=== PATIENT | male | born 1975 | race Caucasian/White ===

== ENCOUNTER 2021-10-21 18:56 | Inpatient (IN) | payer OTHER ==
[2021-10-21 19:16] VITALS: BMI 47.5
[2021-10-21] MEDS ORDERED: ACETAMINOPHEN 1000 MG/100 ML BAG IVPB ONE (19:36)
[2021-10-21] MEDS ORDERED: chlordiazePOXIDE HCL 25 MG CAPSULE PO ONE (19:36)
[2021-10-21] MEDS ORDERED: ONDANSETRON 4 MG/2 ML VIAL IVPUSH ONE (19:36)
[2021-10-21] MEDS ORDERED: LACTATED RINGERS SOLUTION 1000 ML INFUS.BAG IV ONE (19:38)
[2021-10-21] MEDS ORDERED: FOLIC ACID INJECTION - 1 MG, THIAMINE HCL 100 MG, MULTIVIT INJECTION ADULT 10 ML in SOD... IVPB ONE (19:38)
[2021-10-21] MEDS ORDERED: chlordiazePOXIDE HCL 25 MG CAPSULE ONE (20:10)
[2021-10-21] MEDS ORDERED: ONDANSETRON 4 MG/2 ML VIAL ONE (20:10)
[2021-10-21 20:22] LABS: CALCIUM 8.5 mg/dL (8.5-10.1)
[2021-10-21 20:23] LABS: ALBUMIN 3.5 g/dl (3.4-5.0); BLOOD UREA NITROGEN 34.8 mg/dL (7-18); MAGNESIUM 1.9 mg/dL (1.8-2.4)
[2021-10-21 20:26] LABS: CREATININE 5.2 mg/dL (0.55-1.3)
[2021-10-21 20:27] LABS: TOT PROT 7.5 g/dl (6.4-8.2)
[2021-10-21 20:28] LABS: BILIRUBIN,TOTAL 1.2 mg/dL (0.2-1)
[2021-10-21 20:37] LABS: BASO % 0.4 % (0-2.0); HEMATOCRIT 47.3 % (35.4-49); LYMPH % 5.7 % (8-40); MCH 31.1 pg (25.7-33.7); MCHC 33.9 g/dl (32.0-35.9); MEAN CELL VOLUME 91.9 fl (80-96); MONO % 6.4 % (3.8-10.2); NEUT % 87.5 % (42.8-82.8); PLATELET COUNT 330 10^3/uL (134-434); RBC 5.15 M/mm3 (4.00-5.60); RDW 16.2 % (11.9-15.9); WHITE BLOOD COUNT 19.8 K/mm3 (4.0-10.0)
[2021-10-21 22:31] LABS: CHLORIDE 103 mmol/L (98-107); SODIUM 138 mmol/L (136-145)
[2021-10-21 22:33] LABS: BLOOD UREA NITROGEN 35.1 mg/dL (7-18); CALCIUM 8.2 mg/dL (8.5-10.1)
[2021-10-21 22:34] LABS: ALBUMIN 3.4 g/dl (3.4-5.0); ANION GAP 13 MMOL/L (8-16); CO2 23 mmol/L (21-32); GLUCOSE,RANDOM 150 mg/dL (74-106)
[2021-10-21 22:36] LABS: SGPT/ALT 159 U/L (13-61)
[2021-10-21 22:37] LABS: CREATININE 5.1 mg/dL (0.55-1.3); SGOT/AST 583 U/L (15-37)
[2021-10-21 22:38] LABS: BILIRUBIN,TOTAL 0.9 mg/dL (0.2-1); TOT PROT 6.9 g/dl (6.4-8.2)
[2021-10-21 22:39] LABS: LACTIC ACID 3.3 mmol/L (0.4-2.0)
[2021-10-21 22:40] LABS: ALK PHOS 61 U/L (45-117)
[2021-10-22] MEDS ORDERED: CEFEPIME HCL/D5W 1 GM/50 ML BAG IVPB ONE (00:33)
[2021-10-22] MEDS ORDERED: VANCOMYCIN 1 GM in D5W (PRE-DOCKED) 1,000 MG/250 ML IVPB ONE (00:34)
[2021-10-22] MEDS ORDERED: CEFEPIME 1 GM/100 ML BAG IVPB ONE ×2 (00:47→10:01)
[2021-10-22] MEDS ORDERED: LABETALOL HCL 5 MG/1 ML (100MG/20 ML VIAL) IVPUSH ONE (01:08)
[2021-10-22] MEDS ORDERED: VANCOMYCIN/WATER FOR INJ (PEG) 1,000 MG/200 ML BAG IVPB ONE (01:26)
[2021-10-22 02:03] LABS: LACTIC ACID 2.5 mmol/L (0.4-2.0)
[2021-10-22] MEDS ORDERED: LACTATED RINGERS SOLUTION 1000 ML INFUS.BAG IV ONE (03:08)
[2021-10-22] MEDS ORDERED: LORazepam 1 MG TABLET PO PRN (04:46)
[2021-10-22] MEDS ORDERED: SODIUM CHLORIDE 0.9% 500 ML INFUS.BAG IV ONE (05:04)
[2021-10-22] MEDS ORDERED: LORazepam 1 MG TABLET ONE ×4 (05:24→21:32)
[2021-10-22] MEDS: LORazepam 1 MG TABLET PO SCH ×4 (05:26→21:55)
[2021-10-22] MEDS ORDERED: HEPARIN NA (PORCINE) 5,000 UNITS/ML 1ML VIAL ONE ×3 (06:34→21:32)
[2021-10-22] MEDS: HEPARIN NA (PORCINE) 5,000 UNITS/ML 1ML VIAL SQ SCH ×3 (06:37→21:55)
[2021-10-22] MEDS: SODIUM CHLORIDE 1,000 ML IV SCH (06:37)
[2021-10-22] MEDS ORDERED: FOLIC ACID 5 MG/1 ML IVPB ONE (07:00)
[2021-10-22 07:26] LABS: BASO % 0.3 % (0-2.0); HEMATOCRIT 44.2 % (35.4-49); HEMOGLOBIN 14.8 GM/dL (11.7-16.9); LYMPH % 6.1 % (8-40); MCH 31.4 pg (25.7-33.7); MCHC 33.6 g/dl (32.0-35.9); MEAN CELL VOLUME 93.4 fl (80-96); MEAN PLT VOLUME 10.2 fl (7.5-11.1); MONO % 5.5 % (3.8-10.2); NEUT % 88.1 % (42.8-82.8); PLATELET COUNT 289 10^3/uL (134-434); RBC 4.73 M/mm3 (4.00-5.60); RDW 16.2 % (11.9-15.9); WHITE BLOOD COUNT 18.7 K/mm3 (4.0-10.0)
[2021-10-22 07:32] LABS: INR 1.24 (0.83-1.09); PROTHROMBIN TIME (PATIENT) 14.3 SEC (9.7-13.0)
[2021-10-22 07:35] LABS: ACTIVATED PTT 29.9 SECONDS (25.2-36.5)
[2021-10-22] MEDS: INSULIN SLIDING SCALE (NOVOLOG) 1 VIAL SQ SCH ×3 (07:37→15:51)
[2021-10-22 07:44] LABS: CHLORIDE 105 mmol/L (98-107); SODIUM 139 mmol/L (136-145)
[2021-10-22 07:46] LABS: CALCIUM 7.6 mg/dL (8.5-10.1)
[2021-10-22 07:47] LABS: ALBUMIN 3.2 g/dl (3.4-5.0); ANION GAP 12 MMOL/L (8-16); BLOOD UREA NITROGEN 39.3 mg/dL (7-18); CO2 23 mmol/L (21-32); GLUCOSE,RANDOM 134 mg/dL (74-106); MAGNESIUM 2.1 mg/dL (1.8-2.4)
[2021-10-22 07:49] LABS: SGPT/ALT 138 U/L (13-61)
[2021-10-22 07:50] LABS: CREATININE 5.9 mg/dL (0.55-1.3); SGOT/AST 389 U/L (15-37)
[2021-10-22 07:51] LABS: TOT PROT 6.5 g/dl (6.4-8.2)
[2021-10-22 07:53] LABS: ALK PHOS 58 U/L (45-117)
[2021-10-22] MEDS ORDERED: VANCOMYCIN/WATER 2 GM/400 ML PREMIX BAG IVPB SCH (10:00)
[2021-10-22] MEDS ORDERED: THIAMINE HCL 200 MG/2 ML VIAL ONE (10:01)
[2021-10-22] MEDS: THIAMINE HCL 200 MG/2 ML VIAL IVPB SCH (10:15)
[2021-10-22] MEDS: CEFEPIME 1 GM in DEXTROSE 5%-WATER 100 ML IVPB SCH (11:00)
[2021-10-22] MEDS ORDERED: CEFEPIME 1 GM in DEXTROSE 5%-WATER 100 ML IVPB SCH (12:00)
[2021-10-22 15:19] LABS: EPI CELLS 3 /uL (0-25.1); HYALINE CASTS 1 /uL (0-3.1); PH,URINE 7.5 (5.0-8.0); URINE APPEARANCE TURBID; URINE BACTERIA 53 /uL (0-1359); URINE BILIRUBIN NEGATIVE (NEGATIVE); URINE COLOR ORANGE; URINE GLUCOSE (UA) TRACE (NEGATIVE); URINE KETONE NEGATIVE (NEGATIVE); URINE LEUK ESTERASE 2+ (NEGATIVE); URINE NITRITE NEGATIVE (NEGATIVE); URINE PROTEIN 4+ (NEGATIVE); URINE RBC 7507 /uL (0-23.9); URINE UROBILINOGEN 0.2 mg/dL (0.2-1.0); URINE WBC 4041 /uL (0-25.8)
[2021-10-22 15:41] LABS: COCAINE, UR NEGATIVE (NEGATIVE); METHADONE, UR NEGATIVE (NEGATIVE); OPIATES, URI NEGATIVE (NEGATIVE); PHENCYCLIDINE,URINE NEGATIVE (NEGATIVE); URINE AMPHETAMINES NEGATIVE (NEGATIVE); URINE BARBITURATES NEGATIVE (NEGATIVE); URINE BENZODIAZEPINES NEGATIVE (NEGATIVE)
[2021-10-22] MEDS ORDERED: amLODIPine BESYLATE 5 MG TABLET (FP) ONE (16:28)
[2021-10-22] MEDS: amLODIPine BESYLATE 5 MG TABLET (FP) PO SCH (16:37)
[2021-10-23] MEDS ORDERED: VANCOMYCIN/WATER 2 GRAMS 2,000 MG/400 ML PIGGYBACK IVPB SCH ×2
[2021-10-23] MEDS: CEFEPIME 1 GM in DEXTROSE 5%-WATER 100 ML IVPB SCH (00:13)
[2021-10-23] MEDS: SODIUM CHLORIDE 1,000 ML IV SCH ×2 (00:14→06:15)
[2021-10-23] MEDS ORDERED: METOPROLOL TARTRATE 5 MG/5 ML VIAL IVPUSH ONE (00:35)
[2021-10-23] MEDS: ONDANSETRON 4 MG/2 ML VIAL IVPUSH PRN ×2 (00:53→17:26)
[2021-10-23] MEDS ORDERED: SIMETHICONE 80 MG TAB.CHEW (FP) PO ONE (01:24)
[2021-10-23] MEDS: HEPARIN NA (PORCINE) 5,000 UNITS/ML 1ML VIAL SQ SCH ×3 (06:14→22:03)
[2021-10-23] MEDS: LORazepam 1 MG TABLET PO SCH ×4 (06:15→22:03)
[2021-10-23] MEDS: INSULIN SLIDING SCALE (NOVOLOG) 1 VIAL SQ SCH ×3 (06:15→16:55)
[2021-10-23] MEDS: amLODIPine BESYLATE 5 MG TABLET (FP) PO SCH (09:56)
[2021-10-23] MEDS: THIAMINE HCL 200 MG/2 ML VIAL IVPB SCH (09:57)
[2021-10-23] MEDS ORDERED: SODIUM CHLORIDE 0.45% 1,000 ML IV SCH ×2 (10:15)
[2021-10-23] MEDS: CEFTRIAXONE 1 GM in DEXTROSE 5%-WATER - 50 ML IVPB SCH (10:52)
[2021-10-23] MEDS: CARVEDILOL 6.25 MG TABLET (FP) PO SCH ×2 (13:24→22:03)
[2021-10-23] MEDS ORDERED: SODIUM CHLORIDE 0.45% 1,000 ML with SODIUM BICARBONATE 8.4% - 100 MEQ IV SCH (15:16)
[2021-10-23] MEDS: SODIUM BICARBONATE 8.4% - 75 MEQ in SODIUM CHLORIDE 0.45% 1,000 ML IV SCH (17:19)
[2021-10-23 17:49] LABS: CALCIUM 7.9 mg/dL (8.5-10.1)
[2021-10-23] MEDS: SIMETHICONE 80 MG TAB.CHEW (FP) PO PRN ×2 (17:49→22:03)
[2021-10-23 17:51] LABS: BLOOD UREA NITROGEN 27.4 mg/dL (7-18)
[2021-10-23 17:56] LABS: BILIRUBIN,TOTAL 0.6 mg/dL (0.2-1); TOT PROT 5.8 g/dl (6.4-8.2)
[2021-10-23 18:04] LABS: ALBUMIN 2.5 g/dl (3.4-5.0)
[2021-10-23] MEDS: GABAPENTIN 100 MG CAPSULE PO SCH (22:05)
[2021-10-24] MEDS ORDERED: LORazepam 0.5 MG TABLET PO PRN
[2021-10-24] MEDS ORDERED: MELATONIN 5 MG TABLETS PO ONE ×2 (02:32→22:22)
[2021-10-24] MEDS: SODIUM BICARBONATE 8.4% - 75 MEQ in SODIUM CHLORIDE 0.45% 1,000 ML IV SCH (02:33)
[2021-10-24] MEDS: SIMETHICONE 80 MG TAB.CHEW (FP) PO PRN (02:34)
[2021-10-24] MEDS: LORazepam 0.5 MG TABLET PO SCH ×4 (06:04→22:01)
[2021-10-24] MEDS: HEPARIN NA (PORCINE) 5,000 UNITS/ML 1ML VIAL SQ SCH ×3 (06:04→22:00)
[2021-10-24] MEDS: INSULIN SLIDING SCALE (NOVOLOG) 1 VIAL SQ SCH ×3 (06:04→17:09)
[2021-10-24 07:36] LABS: BASO % 0.6 % (0-2.0); EOS % 0.1 % (0-4.5); HEMATOCRIT 43.3 % (35.4-49); HEMOGLOBIN 14.2 GM/dL (11.7-16.9); LYMPH % 9.8 % (8-40); MCH 30.6 pg (25.7-33.7); MCHC 32.8 g/dl (32.0-35.9); MEAN CELL VOLUME 93.2 fl (80-96); MEAN PLT VOLUME 10.2 fl (7.5-11.1); MONO % 6.7 % (3.8-10.2); NEUT % 82.8 % (42.8-82.8); PLATELET COUNT 302 10^3/uL (134-434); RBC 4.65 M/mm3 (4.00-5.60); RDW 15.5 % (11.9-15.9); WHITE BLOOD COUNT 17.5 K/mm3 (4.0-10.0)
[2021-10-24 08:00] LABS: BLOOD UREA NITROGEN 39.4 mg/dL (7-18); CALCIUM 8.1 mg/dL (8.5-10.1)
[2021-10-24 08:02] LABS: ALBUMIN 2.5 g/dl (3.4-5.0)
[2021-10-24 08:05] LABS: BILIRUBIN,TOTAL 0.6 mg/dL (0.2-1); CREATININE 1.6 mg/dL (0.55-1.3)
[2021-10-24 08:06] LABS: TOT PROT 5.8 g/dl (6.4-8.2)
[2021-10-24] MEDS ORDERED: SODIUM CHLORIDE 1,000 ML IV SCH (10:30)
[2021-10-24] MEDS: amLODIPine BESYLATE 5 MG TABLET (FP) PO SCH (10:54)
[2021-10-24] MEDS: CEFTRIAXONE 1 GM in DEXTROSE 5%-WATER - 50 ML IVPB SCH (10:54)
[2021-10-24] MEDS: CARVEDILOL 6.25 MG TABLET (FP) PO SCH ×2 (10:55→22:01)
[2021-10-24] MEDS: GABAPENTIN 100 MG CAPSULE PO SCH ×2 (10:55→22:00)
[2021-10-24] MEDS: THIAMINE HCL 200 MG/2 ML VIAL IVPB SCH (10:56)
[2021-10-24] MEDS: SODIUM CHLORIDE 0.45% 1,000 ML IV SCH (19:47)
[2021-10-25] MEDS ORDERED: LORazepam 0.5 MG TABLET PO ONE (05:00)
[2021-10-25] MEDS: SODIUM CHLORIDE 0.45% 1,000 ML IV SCH ×3 (05:30→19:26)
[2021-10-25] MEDS: HEPARIN NA (PORCINE) 5,000 UNITS/ML 1ML VIAL SQ SCH ×3 (05:36→21:10)
[2021-10-25] MEDS: INSULIN SLIDING SCALE (NOVOLOG) 1 VIAL SQ SCH ×3 (07:01→16:44)
[2021-10-25 08:04] LABS: CALCIUM 7.9 mg/dL (8.5-10.1)
[2021-10-25 08:05] LABS: ALBUMIN 2.2 g/dl (3.4-5.0); BLOOD UREA NITROGEN 19.5 mg/dL (7-18)
[2021-10-25 08:09] LABS: CREATININE 0.6 mg/dL (0.55-1.3)
[2021-10-25 08:10] LABS: BILIRUBIN,TOTAL 0.5 mg/dL (0.2-1); TOT PROT 5.1 g/dl (6.4-8.2)
[2021-10-25 08:19] LABS: HEMATOCRIT 38.4 % (35.4-49); HEMOGLOBIN 12.7 GM/dL (11.7-16.9); MCH 30.6 pg (25.7-33.7); MCHC 33.1 g/dl (32.0-35.9); MEAN CELL VOLUME 92.4 fl (80-96); MEAN PLT VOLUME 9.7 fl (7.5-11.1); PLATELET COUNT 215 10^3/uL (134-434); RBC 4.15 M/mm3 (4.00-5.60); RDW 15.4 % (11.9-15.9); WHITE BLOOD COUNT 10.3 K/mm3 (4.0-10.0)
[2021-10-25] MEDS: CEFTRIAXONE 1 GM in DEXTROSE 5%-WATER - 50 ML IVPB SCH (09:26)
[2021-10-25] MEDS: CARVEDILOL 6.25 MG TABLET (FP) PO SCH ×2 (09:27→21:10)
[2021-10-25] MEDS: amLODIPine BESYLATE 5 MG TABLET (FP) PO SCH (09:27)
[2021-10-25] MEDS: THIAMINE HCL 200 MG/2 ML VIAL IVPB SCH (09:28)
[2021-10-25] MEDS: GABAPENTIN 100 MG CAPSULE PO SCH ×2 (09:28→21:10)
[2021-10-25 10:17] LABS: MAGNESIUM 2.2 mg/dL (1.8-2.4)
[2021-10-25 10:22] LABS: PHOSPHOROUS 2.8 mg/dL (2.5-4.9)
[2021-10-25] MEDS ORDERED: POTASSIUM CHLORIDE TABS 20 MEQ TABLET.ER (FP) PO ONE (10:43)
[2021-10-25] MEDS: SIMETHICONE 80 MG TAB.CHEW (FP) PO PRN ×3 (11:07→19:26)
[2021-10-25 13:22] LABS: HEMATOCRIT 37.2 % (35.4-49); HEMOGLOBIN 12.5 GM/dL (11.7-16.9); MCH 30.9 pg (25.7-33.7); MCHC 33.7 g/dl (32.0-35.9); MEAN CELL VOLUME 91.8 fl (80-96); MEAN PLT VOLUME 9.5 fl (7.5-11.1); PLATELET COUNT 228 10^3/uL (134-434); RBC 4.06 M/mm3 (4.00-5.60); RDW 15.1 % (11.9-15.9); WHITE BLOOD COUNT 10.8 K/mm3 (4.0-10.0)
[2021-10-25] MEDS ORDERED: MELATONIN 5 MG TABLETS PO ONE (22:09)
[2021-10-26] MEDS: HEPARIN NA (PORCINE) 5,000 UNITS/ML 1ML VIAL SQ SCH ×3 (05:55→21:41)
[2021-10-26] MEDS: INSULIN SLIDING SCALE (NOVOLOG) 1 VIAL SQ SCH ×3 (06:00→17:07)
[2021-10-26] MEDS: CEFTRIAXONE 1 GM in DEXTROSE 5%-WATER - 50 ML IVPB SCH (09:01)
[2021-10-26] MEDS: CARVEDILOL 6.25 MG TABLET (FP) PO SCH ×2 (09:03→21:41)
[2021-10-26] MEDS: amLODIPine BESYLATE 5 MG TABLET (FP) PO SCH (09:03)
[2021-10-26] MEDS: THIAMINE HCL 200 MG/2 ML VIAL IVPB SCH (09:03)
[2021-10-26] MEDS: GABAPENTIN 100 MG CAPSULE PO SCH ×2 (09:03→21:41)
[2021-10-26] MEDS: SODIUM CHLORIDE 0.45% 1,000 ML IV SCH ×2 (09:07→12:21)
[2021-10-26 09:50] LABS: CALCIUM 8.3 mg/dL (8.5-10.1)
[2021-10-26 09:51] LABS: ALBUMIN 2.4 g/dl (3.4-5.0); MAGNESIUM 2.1 mg/dL (1.8-2.4)
[2021-10-26 09:54] LABS: CREATININE 0.8 mg/dL (0.55-1.3)
[2021-10-26 09:55] LABS: BILIRUBIN,TOTAL 0.4 mg/dL (0.2-1); TOT PROT 5.5 g/dl (6.4-8.2)
[2021-10-26] MEDS ORDERED: MELATONIN 5 MG TABLETS PO PRN (22:00)
[2021-10-27] MEDS: HEPARIN NA (PORCINE) 5,000 UNITS/ML 1ML VIAL SQ SCH ×3 (05:46→21:41)
[2021-10-27] MEDS: INSULIN SLIDING SCALE (NOVOLOG) 1 VIAL SQ SCH ×3 (06:13→16:53)
[2021-10-27 08:21] LABS: BASO % 0.4 % (0-2.0); EOS % 1.1 % (0-4.5); HEMATOCRIT 34.2 % (35.4-49); HEMOGLOBIN 11.9 GM/dL (11.7-16.9); LYMPH % 17.5 % (8-40); MCH 32.3 pg (25.7-33.7); MCHC 34.9 g/dl (32.0-35.9); MEAN CELL VOLUME 92.4 fl (80-96); MEAN PLT VOLUME 9.3 fl (7.5-11.1); MONO % 8.7 % (3.8-10.2); NEUT % 72.3 % (42.8-82.8); PLATELET COUNT 217 10^3/uL (134-434); WHITE BLOOD COUNT 9.3 K/mm3 (4.0-10.0)
[2021-10-27 08:26] LABS: CHLORIDE 102 mmol/L (98-107); SODIUM 140 mmol/L (136-145)
[2021-10-27 08:45] LABS: ALBUMIN 2.2 g/dl (3.4-5.0)
[2021-10-27 08:48] LABS: BILIRUBIN,DIRECT 0.1 mg/dL (0.0-0.2)
[2021-10-27 08:50] LABS: BILIRUBIN,TOTAL 0.5 mg/dL (0.2-1); TOT PROT 4.9 g/dl (6.4-8.2)
[2021-10-27] MEDS: TAMSULOSIN HCL 0.4 MG CAP PO SCH (08:53)
[2021-10-27 08:54] LABS: CALCIUM 8.2 mg/dL (8.5-10.1)
[2021-10-27 08:55] LABS: ALBUMIN 2.2 g/dl (3.4-5.0); ANION GAP 6 MMOL/L (8-16); BLOOD UREA NITROGEN 10.5 mg/dL (7-18); CO2 32 mmol/L (21-32); GLUCOSE,RANDOM 94 mg/dL (74-106); MAGNESIUM 1.7 mg/dL (1.8-2.4)
[2021-10-27 08:57] LABS: ALK PHOS 34 U/L (45-117); PHOSPHOROUS 3.6 mg/dL (2.5-4.9)
[2021-10-27 08:58] LABS: CREATININE 0.5 mg/dL (0.55-1.3); SGOT/AST 93 U/L (15-37); SGPT/ALT 76 U/L (13-61)
[2021-10-27 08:59] LABS: BILIRUBIN,TOTAL 0.3 mg/dL (0.2-1); TOT PROT 4.9 g/dl (6.4-8.2)
[2021-10-27] MEDS: CEFTRIAXONE 1 GM in DEXTROSE 5%-WATER - 50 ML IVPB SCH (09:26)
[2021-10-27] MEDS: GABAPENTIN 100 MG CAPSULE PO SCH ×2 (09:26→21:33)
[2021-10-27] MEDS: CARVEDILOL 6.25 MG TABLET (FP) PO SCH ×2 (09:26→21:33)
[2021-10-27] MEDS: amLODIPine BESYLATE 5 MG TABLET (FP) PO SCH (09:27)
[2021-10-27] MEDS: THIAMINE HCL 200 MG/2 ML VIAL IVPB SCH (09:27)
[2021-10-27] MEDS: CYANOCOBALAMIN 1,000 MCG TABLET (FP) PO SCH (12:49)
[2021-10-27] MEDS ORDERED: CEFUROXIME AXETIL 250 MG TABLET PO SCH (22:00)
[2021-10-27] MEDS ORDERED: ONDANSETRON 4 MG/2 ML VIAL IVPUSH PRN (22:14)
[2021-10-28] MEDS: INSULIN SLIDING SCALE (NOVOLOG) 1 VIAL SQ SCH ×3 (06:30→19:04)
[2021-10-28] MEDS: HEPARIN NA (PORCINE) 5,000 UNITS/ML 1ML VIAL SQ SCH ×3 (06:30→21:10)
[2021-10-28] MEDS: CEFUROXIME AXETIL 500 MG TABLET PO SCH ×2 (10:09→21:10)
[2021-10-28] MEDS: TAMSULOSIN HCL 0.4 MG CAP PO SCH (10:09)
[2021-10-28] MEDS: GABAPENTIN 100 MG CAPSULE PO SCH ×2 (10:09→21:09)
[2021-10-28] MEDS: CYANOCOBALAMIN 1,000 MCG TABLET (FP) PO SCH (10:10)
[2021-10-28] MEDS: amLODIPine BESYLATE 5 MG TABLET (FP) PO SCH (10:10)
[2021-10-28] MEDS: CARVEDILOL 6.25 MG TABLET (FP) PO SCH ×2 (10:10→21:10)
[2021-10-28] MEDS: THIAMINE HCL 200 MG/2 ML VIAL IVPB SCH ×2 (10:12→10:48)
[2021-10-29] MEDS: HEPARIN NA (PORCINE) 5,000 UNITS/ML 1ML VIAL SQ SCH ×3 (06:00→22:02)
[2021-10-29] MEDS: INSULIN SLIDING SCALE (NOVOLOG) 1 VIAL SQ SCH ×3 (06:53→16:41)
[2021-10-29] MEDS: GABAPENTIN 100 MG CAPSULE PO SCH ×2 (09:08→22:04)
[2021-10-29] MEDS: CYANOCOBALAMIN 1,000 MCG TABLET (FP) PO SCH (09:08)
[2021-10-29] MEDS: TAMSULOSIN HCL 0.4 MG CAP PO SCH (09:08)
[2021-10-29] MEDS: CARVEDILOL 6.25 MG TABLET (FP) PO SCH ×2 (09:08→22:02)
[2021-10-29] MEDS: amLODIPine BESYLATE 5 MG TABLET (FP) PO SCH (09:09)
[2021-10-29] MEDS: CEFUROXIME AXETIL 500 MG TABLET PO SCH ×2 (09:10→22:01)
[2021-10-29] MEDS: THIAMINE HCL 100 MG TABLET (FP) PO SCH (12:07)
[2021-10-29] MEDS: THIAMINE HCL 200 MG/2 ML VIAL IVPB SCH (14:34)
[2021-10-29] MEDS: SIMETHICONE 80 MG TAB.CHEW (FP) PO PRN ×2 (16:40→22:05)
[2021-10-29] MEDS: MELATONIN 5 MG TABLETS PO PRN (22:05)
[2021-10-30] MEDS: HEPARIN NA (PORCINE) 5,000 UNITS/ML 1ML VIAL SQ SCH ×3 (06:13→21:53)
[2021-10-30] MEDS: INSULIN SLIDING SCALE (NOVOLOG) 1 VIAL SQ SCH ×3 (06:19→16:39)
[2021-10-30] MEDS: GABAPENTIN 100 MG CAPSULE PO SCH ×2 (09:33→21:53)
[2021-10-30] MEDS: TAMSULOSIN HCL 0.4 MG CAP PO SCH (09:34)
[2021-10-30] MEDS: CARVEDILOL 6.25 MG TABLET (FP) PO SCH ×2 (09:34→21:53)
[2021-10-30] MEDS: CYANOCOBALAMIN 1,000 MCG TABLET (FP) PO SCH (09:34)
[2021-10-30] MEDS: THIAMINE HCL 100 MG TABLET (FP) PO SCH (09:34)
[2021-10-30] MEDS: CEFUROXIME AXETIL 500 MG TABLET PO SCH ×2 (09:34→21:52)
[2021-10-30] MEDS: amLODIPine BESYLATE 5 MG TABLET (FP) PO SCH (09:38)
[2021-10-30] MEDS: SIMETHICONE 80 MG TAB.CHEW (FP) PO PRN (18:32)
[2021-10-30] MEDS: MELATONIN 5 MG TABLETS PO PRN (22:07)
[2021-10-31] MEDS: HEPARIN NA (PORCINE) 5,000 UNITS/ML 1ML VIAL SQ SCH ×3 (06:00→22:26)
[2021-10-31] MEDS: INSULIN SLIDING SCALE (NOVOLOG) 1 VIAL SQ SCH ×3 (06:07→17:08)
[2021-10-31] MEDS: CYANOCOBALAMIN 1,000 MCG TABLET (FP) PO SCH (09:14)
[2021-10-31] MEDS: THIAMINE HCL 100 MG TABLET (FP) PO SCH (09:14)
[2021-10-31] MEDS: TAMSULOSIN HCL 0.4 MG CAP PO SCH (09:14)
[2021-10-31] MEDS: CEFUROXIME AXETIL 500 MG TABLET PO SCH ×2 (09:14→22:23)
[2021-10-31] MEDS: amLODIPine BESYLATE 5 MG TABLET (FP) PO SCH (09:14)
[2021-10-31] MEDS: GABAPENTIN 100 MG CAPSULE PO SCH ×2 (09:15→22:23)
[2021-10-31] MEDS: CARVEDILOL 6.25 MG TABLET (FP) PO SCH ×2 (09:15→22:22)
[2021-10-31] MEDS ORDERED: MAG HYDROX/AL HYDROX/SIMETH 30 ML UNIT-DOSE CUP PO PRN (12:42)
[2021-10-31] MEDS: LIDOCAINE 5% TOPICAL PATCH TP SCH (13:02)
[2021-10-31] MEDS: MELATONIN 5 MG TABLETS PO PRN (22:23)
[2021-10-31] MEDS: LIDOCAINE PATCH REMOVAL MC SCH (22:26)
[2021-11-01] MEDS: HEPARIN NA (PORCINE) 5,000 UNITS/ML 1ML VIAL SQ SCH ×3 (06:52→22:49)
[2021-11-01] MEDS: INSULIN SLIDING SCALE (NOVOLOG) 1 VIAL SQ SCH ×3 (06:57→17:21)
[2021-11-01] MEDS: TAMSULOSIN HCL 0.4 MG CAP PO SCH (09:23)
[2021-11-01] MEDS: CARVEDILOL 6.25 MG TABLET (FP) PO SCH ×2 (09:23→22:46)
[2021-11-01] MEDS: CYANOCOBALAMIN 1,000 MCG TABLET (FP) PO SCH (09:23)
[2021-11-01] MEDS: GABAPENTIN 100 MG CAPSULE PO SCH ×2 (09:23→22:45)
[2021-11-01] MEDS: amLODIPine BESYLATE 5 MG TABLET (FP) PO SCH (09:23)
[2021-11-01] MEDS: THIAMINE HCL 100 MG TABLET (FP) PO SCH (09:23)
[2021-11-01] MEDS: LIDOCAINE 5% TOPICAL PATCH TP SCH (09:30)
[2021-11-01] MEDS: CEFUROXIME AXETIL 500 MG TABLET PO SCH (09:43)
[2021-11-01] MEDS: SIMETHICONE 80 MG TAB.CHEW (FP) PO PRN (15:42)
[2021-11-01 19:50] LABS: EPI CELLS >36 /uL (0-25.1); HYALINE CASTS 3 /uL (0-3.1); PH,URINE 7.5 (5.0-8.0); URINE APPEARANCE CLEAR; URINE BACTERIA 45 /uL (0-1359); URINE BILIRUBIN NEGATIVE (NEGATIVE); URINE COLOR YELLOW; URINE GLUCOSE (UA) TRACE (NEGATIVE); URINE KETONE NEGATIVE (NEGATIVE); URINE LEUK ESTERASE NEGATIVE (NEGATIVE); URINE NITRITE NEGATIVE (NEGATIVE); URINE PROTEIN 4+ (NEGATIVE); URINE RBC 140 /uL (0-23.9); URINE UROBILINOGEN 0.2 mg/dL (0.2-1.0)
[2021-11-01] MEDS: MELATONIN 5 MG TABLETS PO PRN (22:46)
[2021-11-01] MEDS: POLYETHYLENE GLYCOL (HEALTHYLAX) 3350 17 GM PACKET PO SCH (22:46)
[2021-11-01] MEDS: LIDOCAINE PATCH REMOVAL MC SCH (22:56)
[2021-11-02 00:28] LABS: URINE WBC 250.7 /uL (0-25.8)
[2021-11-02 04:44] LABS: EPI CELLS 33 /uL (0-25.1); HYALINE CASTS 2 /uL (0-3.1); PH,URINE 7.5 (5.0-8.0); URINE APPEARANCE CLEAR; URINE BACTERIA 48 /uL (0-1359); URINE BILIRUBIN NEGATIVE (NEGATIVE); URINE COLOR YELLOW; URINE GLUCOSE (UA) TRACE (NEGATIVE); URINE KETONE NEGATIVE (NEGATIVE); URINE LEUK ESTERASE NEGATIVE (NEGATIVE); URINE NITRITE NEGATIVE (NEGATIVE); URINE PROTEIN 4+ (NEGATIVE); URINE RBC 142 /uL (0-23.9); URINE UROBILINOGEN 0.2 mg/dL (0.2-1.0)
[2021-11-02] MEDS: HEPARIN NA (PORCINE) 5,000 UNITS/ML 1ML VIAL SQ SCH ×3 (06:44→22:16)
[2021-11-02] MEDS: INSULIN SLIDING SCALE (NOVOLOG) 1 VIAL SQ SCH ×3 (06:44→16:17)
[2021-11-02 08:27] LABS: URINE WBC 250.7 /uL (0-25.8)
[2021-11-02 09:31] LABS: CALCIUM 9.1 mg/dL (8.5-10.1)
[2021-11-02 09:35] LABS: CREATININE 2.7 mg/dL (0.55-1.3)
[2021-11-02 09:41] LABS: BLOOD UREA NITROGEN 57.5 mg/dL (7-18)
[2021-11-02] MEDS: CYANOCOBALAMIN 1,000 MCG TABLET (FP) PO SCH (11:02)
[2021-11-02] MEDS: amLODIPine BESYLATE 5 MG TABLET (FP) PO SCH (11:02)
[2021-11-02] MEDS: GABAPENTIN 100 MG CAPSULE PO SCH ×2 (11:02→22:16)
[2021-11-02] MEDS: THIAMINE HCL 100 MG TABLET (FP) PO SCH (11:02)
[2021-11-02] MEDS: CARVEDILOL 6.25 MG TABLET (FP) PO SCH ×2 (11:03→22:15)
[2021-11-02] MEDS: TAMSULOSIN HCL 0.4 MG CAP PO SCH (11:03)
[2021-11-02] MEDS: LIDOCAINE 5% TOPICAL PATCH TP SCH (11:04)
[2021-11-02] MEDS: POLYETHYLENE GLYCOL (HEALTHYLAX) 3350 17 GM PACKET PO SCH ×4 (11:04→23:15)
[2021-11-02] MEDS: MELATONIN 5 MG TABLETS PO PRN (22:15)
[2021-11-02] MEDS: LIDOCAINE PATCH REMOVAL MC SCH (22:21)
[2021-11-03] MEDS: HEPARIN NA (PORCINE) 5,000 UNITS/ML 1ML VIAL SQ SCH ×2 (06:07→13:35)
[2021-11-03] MEDS: INSULIN SLIDING SCALE (NOVOLOG) 1 VIAL SQ SCH ×3 (06:13→15:46)
[2021-11-03] MEDS: TAMSULOSIN HCL 0.4 MG CAP PO SCH (08:24)
[2021-11-03] MEDS: SIMETHICONE 80 MG TAB.CHEW (FP) PO PRN (08:32)
[2021-11-03] MEDS: LIDOCAINE 5% TOPICAL PATCH TP SCH (09:12)
[2021-11-03] MEDS: CARVEDILOL 6.25 MG TABLET (FP) PO SCH (09:13)
[2021-11-03] MEDS: GABAPENTIN 100 MG CAPSULE PO SCH (09:13)
[2021-11-03] MEDS: amLODIPine BESYLATE 5 MG TABLET (FP) PO SCH (09:13)
[2021-11-03] MEDS: CYANOCOBALAMIN 1,000 MCG TABLET (FP) PO SCH (09:13)
[2021-11-03] MEDS: THIAMINE HCL 100 MG TABLET (FP) PO SCH (09:13)
[2021-11-03] MEDS: POLYETHYLENE GLYCOL (HEALTHYLAX) 3350 17 GM PACKET PO SCH (09:18)
[2021-11-03 11:28] LABS: CREATININE 0.7 mg/dL (0.55-1.3)
[2021-11-03 11:29] LABS: BILIRUBIN,TOTAL 0.4 mg/dL (0.2-1); TOT PROT 6.6 g/dl (6.4-8.2)
[2021-11-03 11:33] LABS: ALBUMIN 3.1 g/dl (3.4-5.0); BLOOD UREA NITROGEN 17.7 mg/dL (7-18)
[2021-11-03 15:32] VITALS: BP 92/56; PULSE 70; RESP 16; TEMP 98.7
== END 2021-11-03 18:45 | disposition home health service (06) | DRG 872 ==
LOC: JER 18:56 → JERBED 21:14 → J4S 10-22 23:36 → J8W 10-27 21:49
PROVIDERS: ADMIT Internal Medicine
DX: A41.9 Sepsis, unspecified organism (principal); N17.9 Acute kidney failure, unspecified; M62.82 Rhabdomyolysis; Z68.42 Body mass index [BMI] 45.0-49.9, adult; N39.0 Urinary tract infection, site not specified; R33.9 Retention of urine, unspecified; E87.5 Hyperkalemia; E66.01 Morbid (severe) obesity due to excess calories; K76.0 Fatty (change of) liver, not elsewhere classified; I10 Essential (primary) hypertension; E78.5 Hyperlipidemia, unspecified; D72.829 Elevated white blood cell count, unspecified; K70.10 Alcoholic hepatitis without ascites; F10.10 Alcohol abuse, uncomplicated; E86.0 Dehydration; G62.1 Alcoholic polyneuropathy
CPT/HCPCS: 0241U-QW; 36415; 71045-TC-FY; 73562-TC-RT-FY; 76705-TC; 76775-TC; 80048; 80053; 80076; 80307; 81003; 82550; 82553; 82962; 83036; 83605; 83735; 84100; 84484; 85025; 85027; 85610; 85730; 86704; 86705; 86708; 87040; 87086; 87340; 87517; 87902; 93005; 93010; 93306-TC; 94660; 97116-GP; 97161-GP; 99285-25; J1644

== ENCOUNTER 2022-10-04 22:57 | Emergency (ER) | payer OTHER ==
[2022-10-04 23:04] VITALS: RESP 18; BMI 31.1
[2022-10-05 02:01] VITALS: BP 123/80; PULSE 91; TEMP 97.1
== END 2022-10-05 02:49 | disposition home or self-care (01) ==
LOC: JER 22:57
DX: F10.129 Alcohol abuse with intoxication, unspecified (principal)
CPT/HCPCS: 99283-25

== ENCOUNTER 2022-10-05 03:28 | Inpatient (IN) | payer OTHER ==
[2022-10-05 03:58] VITALS: BMI 44.7
[2022-10-05] MEDS ORDERED: DICYCLOMINE HCL 10 MG CAPSULE PO PRN (04:17)
[2022-10-05] MEDS ORDERED: guaiFENesin 600 MG TABLET.ER (FP) PO PRN (04:17)
[2022-10-05] MEDS ORDERED: POLYETHYLENE GLYCOL (HEALTHYLAX) 3350 17 GM PACKET PO PRN (04:17)
[2022-10-05] MEDS ORDERED: BENZOCAINE/MENTHOL (CHLORASEPTIC ) LOZENGE MM PRN (04:17)
[2022-10-05] MEDS ORDERED: BENZONATATE 200 MG CAPSULE PO PRN (04:17)
[2022-10-05] MEDS ORDERED: NALOXONE HCL (KLOXXADO) 8 MG SPRAY NS PRN (04:17)
[2022-10-05] MEDS ORDERED: METHOCARBAMOL 500 MG TABLET PO PRN (04:17)
[2022-10-05] MEDS ORDERED: MAG HYDROX/AL HYDROX/SIMETH 30 ML UNIT-DOSE CUP PO PRN (04:17)
[2022-10-05] MEDS ORDERED: ACETAMINOPHEN 325 MG TABLET (FP) PO PRN (04:17)
[2022-10-05] MEDS ORDERED: BISMUTH SUBSALICYLATE 524 MG/30 ML PO PRN (04:17)
[2022-10-05] MEDS ORDERED: IBUPROFEN 400 MG TABLET (FP) PO PRN (04:17)
[2022-10-05] MEDS ORDERED: hydrOXYzine PAMOATE 25 MG CAPSULE (FP) PO PRN (04:17)
[2022-10-05] MEDS ORDERED: ONDANSETRON *ODT* 4 MG TABLET SL PRN (04:17)
[2022-10-05] MEDS ORDERED: LOPERAMIDE HCL 2 MG CAPSULE PO PRN (04:17)
[2022-10-05] MEDS ORDERED: IBUPROFEN 600 MG TABLET (FP) PO PRN (04:17)
[2022-10-05] MEDS ORDERED: NALOXONE HCL 0.4 MG/ML VIAL IM PRN (04:17)
[2022-10-05] MEDS ORDERED: MAGNESIUM HYDROX 2400MG/30ML ORAL SUSPENSION 30 ML CUP PO PRN (04:17)
[2022-10-05 06:44] VITALS: RESP 18
[2022-10-05 09:41] VITALS: BP 104/53; PULSE 99; TEMP 98.1
[2022-10-05] MEDS ORDERED: PRENATAL VITAMINS W/ FOLIC ACID TABLET (FP) PO SCH (10:00)
[2022-10-05] MEDS ORDERED: amLODIPine BESYLATE 5 MG TABLET (FP) PO SCH (10:00)
[2022-10-05] MEDS ORDERED: CARVEDILOL 6.25 MG TABLET (FP) PO SCH (10:00)
[2022-10-05 13:48] LABS: BASO % 0.7 % (0-2.0); EOS % 0.4 % (0-4.5); HEMATOCRIT 43.3 % (35.4-49); HEMOGLOBIN 14.1 GM/dL (11.7-16.9); MCH 28.9 pg (25.7-33.7); MCHC 32.5 g/dl (32.0-35.9); MEAN CELL VOLUME 88.7 fl (80-96); MEAN PLT VOLUME 10.3 fl (7.5-11.1); MONO % 4.4 % (3.8-10.2); NEUT % 56.5 % (42.8-82.8); PLATELET COUNT 249 10^3/uL (134-434); RBC 4.88 M/mm3 (4.00-5.60); WHITE BLOOD COUNT 8.7 K/mm3 (4.0-10.0)
[2022-10-05 13:55] LABS: POTASSIUM 3.8 mmol/L (3.5-5.1)
[2022-10-05 13:59] LABS: ALBUMIN 3.5 g/dl (3.4-5.0)
[2022-10-05 14:01] LABS: BLOOD UREA NITROGEN 16.9 mg/dL (7-18)
[2022-10-05 14:02] LABS: CREATININE 0.8 mg/dL (0.55-1.3)
[2022-10-05 14:03] LABS: BILIRUBIN,TOTAL 0.3 mg/dL (0.2-1)
[2022-10-05 14:04] LABS: TOT PROT 6.7 g/dl (6.4-8.2)
[2022-10-05] MEDS ORDERED: MELATONIN 5 MG TABLETS PO SCH (22:00)
[2022-10-05] MEDS ORDERED: THIAMINE HCL 100 MG TABLET (FP) PO SCH (22:00)
[2022-10-06] MEDS ORDERED: TAMSULOSIN HCL 0.4 MG CAP PO SCH (08:30)
[2022-10-06] MEDS ORDERED: CARVEDILOL 6.25 MG TABLET (FP) PO SCH (10:00)
[2022-10-06] MEDS ORDERED: amLODIPine BESYLATE 5 MG TABLET (FP) PO SCH (10:00)
== END 2022-10-05 09:47 | disposition home or self-care (01) | DRG 897 ==
LOC: YASAS 03:28 → UNDOADMIN 04:49 → Y6N 04:49 → UNDODISIN 09:47
PROVIDERS: ADMIT Allergy & Immunology; ATTEND Allergy & Immunology
PROC: HZ2ZZZZ Detoxification Services for Substance Abuse Treatment (ICD-10-PCS; principal; 2022-10-05)
DX: F10.20 Alcohol dependence, uncomplicated (principal); Z68.41 Body mass index [BMI] 40.0-44.9, adult; G47.30 Sleep apnea, unspecified; I10 Essential (primary) hypertension; E66.01 Morbid (severe) obesity due to excess calories; R73.9 Hyperglycemia, unspecified
CPT/HCPCS: 36415; 80053; 85025; 86780; 87635; 87811

== ENCOUNTER 2022-10-05 18:22 | Emergency (ER) | payer OTHER ==
[2022-10-05 18:49] VITALS: BMI 44.7
[2022-10-05] MEDS ORDERED: SODIUM CHLORIDE 0.9% 500 ML INFUS.BAG IV ONE (19:51)
[2022-10-06 06:13] VITALS: BP 126/86; PULSE 114; RESP 20; TEMP 97.2
== END 2022-10-06 06:38 | disposition home or self-care (01) ==
LOC: JER 18:22
DX: F10.129 Alcohol abuse with intoxication, unspecified (principal); R40.0 Somnolence
CPT/HCPCS: 70450-TC; 72125-TC; 99284-25

== ENCOUNTER 2022-10-06 08:23 | Inpatient (IN) | payer OTHER ==
[2022-10-06 09:02] VITALS: BMI 44.7
[2022-10-06] MEDS ORDERED: guaiFENesin 600 MG TABLET.ER (FP) PO PRN (09:48)
[2022-10-06] MEDS ORDERED: POLYETHYLENE GLYCOL (HEALTHYLAX) 3350 17 GM PACKET PO PRN (09:48)
[2022-10-06] MEDS ORDERED: NALOXONE HCL 0.4 MG/ML VIAL IM PRN (09:48)
[2022-10-06] MEDS ORDERED: DICYCLOMINE HCL 10 MG CAPSULE PO PRN (09:48)
[2022-10-06] MEDS ORDERED: BENZOCAINE/MENTHOL (CHLORASEPTIC ) LOZENGE MM PRN (09:48)
[2022-10-06] MEDS ORDERED: NALOXONE HCL (KLOXXADO) 8 MG SPRAY NS PRN (09:48)
[2022-10-06] MEDS ORDERED: IBUPROFEN 600 MG TABLET (FP) PO PRN (09:48)
[2022-10-06] MEDS ORDERED: LOPERAMIDE HCL 2 MG CAPSULE PO PRN (09:48)
[2022-10-06] MEDS ORDERED: BISMUTH SUBSALICYLATE 524 MG/30 ML PO PRN (09:48)
[2022-10-06] MEDS ORDERED: MAGNESIUM HYDROX 2400MG/30ML ORAL SUSPENSION 30 ML CUP PO PRN (09:48)
[2022-10-06] MEDS ORDERED: ONDANSETRON *ODT* 4 MG TABLET SL PRN (09:48)
[2022-10-06] MEDS ORDERED: MAG HYDROX/AL HYDROX/SIMETH 30 ML UNIT-DOSE CUP PO PRN (09:48)
[2022-10-06] MEDS ORDERED: ACETAMINOPHEN 325 MG TABLET (FP) PO PRN (09:48)
[2022-10-06] MEDS ORDERED: IBUPROFEN 400 MG TABLET (FP) PO PRN (09:48)
[2022-10-06] MEDS ORDERED: BENZONATATE 200 MG CAPSULE PO PRN (09:48)
[2022-10-06] MEDS ORDERED: PRENATAL VITAMINS W/ FOLIC ACID TABLET (FP) PO ONE (10:38)
[2022-10-06] MEDS: PRENATAL VITAMINS W/ FOLIC ACID TABLET (FP) PO SCH (10:46)
[2022-10-06] MEDS: amLODIPine BESYLATE 5 MG TABLET (FP) PO SCH (16:10)
[2022-10-06] MEDS: THIAMINE HCL 100 MG TABLET (FP) PO SCH (21:08)
[2022-10-06] MEDS: MELATONIN 5 MG TABLETS PO SCH (21:08)
[2022-10-06] MEDS: METHOCARBAMOL 500 MG TABLET PO PRN (21:08)
[2022-10-06] MEDS ORDERED: CARVEDILOL 6.25 MG TABLET (FP) PO SCH (22:00)
[2022-10-07] MEDS ORDERED: cloNIDine HCL 0.1 MG TABLET PO ONE (00:56)
[2022-10-07 09:30] LABS: HEMATOCRIT 43.1 % (35.4-49); MCH 29.1 pg (25.7-33.7); MCHC 32.4 g/dl (32.0-35.9); MEAN CELL VOLUME 89.8 fl (80-96); PLATELET COUNT 277 10^3/uL (134-434); RDW 15.1 % (11.9-15.9); WHITE BLOOD COUNT 10.5 K/mm3 (4.0-10.0)
[2022-10-07 09:43] LABS: POTASSIUM 4.3 mmol/L (3.5-5.1)
[2022-10-07 09:54] LABS: ALBUMIN 3.7 g/dl (3.4-5.0); BLOOD UREA NITROGEN 17.5 mg/dL (7-18)
[2022-10-07 09:55] LABS: TOT PROT 7.1 g/dl (6.4-8.2)
[2022-10-07 09:56] LABS: CALCIUM 9.1 mg/dL (8.5-10.1)
[2022-10-07 09:57] LABS: CREATININE 0.9 mg/dL (0.55-1.3)
[2022-10-07 09:58] LABS: BILIRUBIN,TOTAL 0.3 mg/dL (0.2-1)
[2022-10-07] MEDS: METHOCARBAMOL 500 MG TABLET PO PRN (10:28)
[2022-10-07] MEDS: PRENATAL VITAMINS W/ FOLIC ACID TABLET (FP) PO SCH (10:28)
[2022-10-07] MEDS: CARVEDILOL 6.25 MG TABLET (FP) PO SCH ×2 (10:29→22:24)
[2022-10-07] MEDS: amLODIPine BESYLATE 5 MG TABLET (FP) PO SCH (10:29)
[2022-10-07 21:33] VITALS: RESP 18
[2022-10-07] MEDS: THIAMINE HCL 100 MG TABLET (FP) PO SCH (22:24)
[2022-10-07] MEDS: MELATONIN 5 MG TABLETS PO SCH (22:24)
[2022-10-08] MEDS: CARVEDILOL 6.25 MG TABLET (FP) PO SCH (09:50)
[2022-10-08] MEDS: amLODIPine BESYLATE 5 MG TABLET (FP) PO SCH (09:50)
[2022-10-08] MEDS: PRENATAL VITAMINS W/ FOLIC ACID TABLET (FP) PO SCH (09:50)
[2022-10-08 10:17] VITALS: BP 138/85; PULSE 90; TEMP 96.9
== END 2022-10-08 10:10 | disposition home or self-care (01) | DRG 897 ==
LOC: YASAS 08:23 → Y6N 11:24
PROVIDERS: ADMIT Allergy & Immunology; ATTEND Allergy & Immunology
PROC: HZ2ZZZZ Detoxification Services for Substance Abuse Treatment (ICD-10-PCS; principal; 2022-10-06)
DX: F10.230 Alcohol dependence with withdrawal, uncomplicated (principal); Z68.41 Body mass index [BMI] 40.0-44.9, adult; G47.30 Sleep apnea, unspecified; I10 Essential (primary) hypertension; E66.01 Morbid (severe) obesity due to excess calories; R73.03 Prediabetes
CPT/HCPCS: 36415; 80053; 85027; 86780; 87635; 87811; 93005; 93010